=== PATIENT | male | born 1990 | race Caucasian/White ===

== ENCOUNTER 2016-11-05 19:48 | Emergency (ER) | payer OTHER, MEDICAID ==
[~2016-11-05] VITALS: Ht 180.3 cm; Wt 99.8 kg
[2016-11-05 20:00] VITALS: BP 158/98
[2016-11-05] MEDS ORDERED: LIDOCAINE 1% HCL (LOCAL ANESTH.) INJ 20ML MDV ONE (22:56)
== END 2016-11-06 09:23 | disposition home or self-care (01) ==
LOC: EDBD 19:48 → ER 19:51
DX: S61.011A Laceration without foreign body of right thumb without damage to nail, initial encounter (principal); S61.511A Laceration without foreign body of right wrist, initial encounter; F17.210 Nicotine dependence, cigarettes, uncomplicated; F12.10 Cannabis abuse, uncomplicated; W25.XXXA Contact with sharp glass, initial encounter; Y93.89 Activity, other specified; Y99.8 Other external cause status; Y92.89 Other specified places as the place of occurrence of the external cause
CPT/HCPCS: 12001; 99283; J2001; 12031; 12032

== ENCOUNTER 2017-05-20 15:43 | Emergency (ER) | payer OTHER ==
[~2017-05-20] VITALS: Ht 180.3 cm; Wt 90.7 kg
[2017-05-20] MEDS ORDERED: ACETAMINOPHEN 325 MG TAB PO ONE ×2 (15:50→16:00)
[2017-05-20] MEDS ORDERED: IBUPROFEN 600 MG TAB PO ONE ×2 (17:16→17:30)
[2017-05-20 18:45] VITALS: BP 120/81
== END 2017-05-20 19:15 | disposition home or self-care (01) ==
LOC: ER 15:43 → EDBD 15:43 → ER 19:15
DX: J06.9 Acute upper respiratory infection, unspecified (principal); Z87.891 Personal history of nicotine dependence
CPT/HCPCS: 71046

== ENCOUNTER 2019-04-02 08:58 | Emergency (ER) | payer OTHER, MEDICAID ==
[~2019-04-02] VITALS: Ht 180.3 cm; Wt 108.9 kg
[2019-04-02 10:36] VITALS: BP 144/86
== END 2019-04-02 10:45 | disposition home or self-care (01) ==
LOC: ER 08:58
DX: J40 Bronchitis, not specified as acute or chronic (principal); F17.210 Nicotine dependence, cigarettes, uncomplicated
CPT/HCPCS: 71046

== ENCOUNTER 2022-03-14 19:35 | Emergency (ER) | payer MEDICAID, OTHER ==
[~2022-03-14] VITALS: Ht 180.3 cm; Wt 127.0 kg
[2022-03-14] MEDS ORDERED: LORazepam 0.5 MG TAB PO ONE (20:00)
[2022-03-14 20:35] LABS: Basophils # (auto) 0.1 10 ^3/uL (0-0.2); Basophils % (auto) 0.7 % (0.0-2.0); Eosinophils # (auto) 0.1 10 ^3/uL (0-0.8); Eosinophils % (auto) 0.6 % (0.0-7.0); Hematocrit 44.3 % (41.0-53.0); Hemoglobin 15.3 g/dL (13.5-17.5); Lymphocytes # (auto) 1.9 10 ^3/uL (0.4-5.4); Mean Corpuscular Hemoglobin 31.3 pg (28.0-32.0); Mean Corpuscular Hgb Conc. 34.5 g/dL (32.0-36.0); Mean Corpuscular Volume 90.8 fL (80.0-100.0); Monocytes # (auto) 0.7 10 ^3/uL (0-1.3); Monocytes % (auto) 5.9 % (0.0-12.0); Neutrophils # (auto) 8.4 10 ^3/uL (1.6-8.6); Neutrophils % (auto) 75.8 % (37.0-80.0); Nucleated Red Blood Cells % 0.1 %; Red Blood Cells 4.88 10^6/uL (4.5-5.90); White Blood Cell 11.1 10^3/uL (4.4-10.8)
[2022-03-14 20:48] LABS: Albumin 4.3 g/dL (3.4-5.0); BUN/Creatinine Ratio 13.7; Calcium 9.4 mg/dL (8.5-10.1); Potassium 3.9 mmol/L (3.5-5.1)
[2022-03-14 20:50] LABS: Bilirubin, Total 0.2 mg/dL (0.2-1.0)
[2022-03-14 22:01] VITALS: BP 137/90
== END 2022-03-14 22:09 | disposition home or self-care (01) ==
LOC: EDBD 19:35 → ER 19:38
DX: F41.9 Anxiety disorder, unspecified (principal); J45.909 Unspecified asthma, uncomplicated; I10 Essential (primary) hypertension; Z87.891 Personal history of nicotine dependence
CPT/HCPCS: 36415; 71045; 80053; 84484; 85025